=== PATIENT | female | born 1975 | race American Indian/Alaskan Native ===

== ENCOUNTER 2017-05-18 19:37 | Emergency (ER) | payer OTHER ==
[2017-05-18] MEDS ORDERED: TYLENOL PO ONE (20:28)
[2017-05-18] MEDS ORDERED: MOTRIN PO ONE (20:28)
--- NOTE | 2017-05-18 20:28 | Emergency Department Report ---
ED Lower Extremity HPI - General Chief Complaint: Extremity Injury, Lower Stated Complaint: RIGHT ANKLE PAIN Time Seen by Provider: 05/18/17 20:17 Source: patient Mode of arrival: Ambulatory Limitations: No Limitations - History of Present Illness Initial Comments: This is a 42-year-old female who was previously unknown to this provider, she reports that she is not and denies chronic medical conditions. Patient presents to the ER with left nontraumatic ankle swelling, and dorsal/ lateral foot swelling since Saturday. Patient reports she was on a treadmill, and her symptoms started after being on the treadmill. Denies other complaints and injuries. Has some swelling which is mildly painful, does not radiate anywhere, no redness, pus, streaking or fevers. No tingling, numbness or weakness. MD Complaint: foot injury -: days(s) Injury: Ankle: Left, Foot: Left Type of Injury: other Place: other Severity: mild Improves With: rest Worsens With: movement, palpation Context: other Associated Symptoms: swelling, ambulatory. denies: snap/pop sensation, numbness , tingling, unable to bear weight - Related Data Previous Rx's Medication Instructions Recorded Last Taken Type Acetaminophen [Tylenol Arthritis] 650 mg PO Q6HR PRN #30 tablet.er 05/18/17 Unknown Rx Ibuprofen [Motrin] 600 mg PO Q8H PRN #30 tablet 05/18/17 Unknown Rx Allergies Allergy/AdvReac Type Severity Reaction Status Date / Time No Known Allergies Allergy Unverified 05/18/17 19:46 ED Review of Systems ROS: Stated complaint: RIGHT ANKLE PAIN Other details as noted in HPI Comment: All other systems reviewed and negative ED Past Medical Hx - Past Medical History Previous Medical History?: No - Surgical History Past Surgical History?: No - Social History Smoking Status: Never Smoker Substance Use Type: None - Medications Home Medications: Home Medications Medication Instructions Recorded Confirmed Last Taken Type Acetaminophen [Tylenol Arthritis] 650 mg PO Q6HR PRN #30 tablet.er 05/18/17 Unknown Rx Ibuprofen [Motrin] 600 mg PO Q8H PRN #30 tablet 05/18/17 Unknown Rx ED Physical Exam - General Limitations: No Limitations General appearance: alert, in no apparent distress - Head Head exam: Present: atraumatic, normocephalic - Eye Eye exam: Present: normal appearance, EOMI - ENT ENT exam: Present: normal exam, normal external ear exam - Neck Neck exam: Present: normal inspection - Respiratory Respiratory exam: Absent: respiratory distress - Cardiovascular Cardiovascular Exam: Present: regular rate - GI/Abdominal GI/Abdominal exam: Present: soft - Extremities Exam Extremities exam: Present: full ROM, tenderness, normal capillary refill, other (the Sterling test is functional. There is superficial swelling noted on the dorsal/lateral aspect of the left foot. Dorsi and plantar flexion are intact in the bilateral lower extremities. Circumduction is intact in the bilateral lower extremities. The compartments are soft. 2+ pulses noted in the bilateral lower and upper extremities. There is no palpable cord. There is negative Homans sign.). Absent: pedal edema, joint swelling, calf tenderness - Back Exam Back exam: Present: normal inspection, full ROM. Absent: tenderness, CVA tenderness (R), paraspinal tenderness, vertebral tenderness - Neurological Exam Neurological exam: Present: alert, oriented X3, CN II-XII intact, normal gait ( patient walks with a slight limp but is able to weight bear), other ( Extraocular movements intact. Tongue midline. No facial droop. Facial sensation intact to light touch in the V1, V2, V3 distribution bilaterally. 5 and 5 strength in 4 extremities.. Sensation is intact to light touch in 4 extremities.). Absent: motor sensory deficit - Psychiatric Psychiatric exam: Present: normal affect, normal mood - Skin Skin exam: Present: warm, dry, intact, normal color. Absent: rash, cyanosis, diaphoretic, erythema, urticaria, vesicles, petechiae, pallor, abrasion, ecchymosis ED Course Vital Signs 05/18/17 19:43 Temperature 98.3 F Pulse Rate 74 Respiratory 16 Rate Blood Pressure 128/90 [Right] O2 Sat by Pulse 100 Oximetry ED Lower Extremity MDM - Lab Data Vital Signs 05/18/17 19:43 Temperature 98.3 F Pulse Rate 74 Respiratory 16 Rate Blood Pressure 128/90 [Right] O2 Sat by Pulse 100 Oximetry - Radiology Data Radiology results: image reviewed interpreted by me: x-ray of the left ankle, interpreted by me: Demonstrates no fracture or dislocation, soft tissue swelling is noted, defect is noted in the posterior aspect of the leg, suspicious for tendon rupture. - Medical Decision Making Differential diagnosis, including but not limited to: Sprain, strain, fracture, dislocation, tendon rupture Assessment and plan: 42-year-old female with left lateral foot swelling, not consistent with cellulitis, infection, DVT, has a functional Sterling test, compartments are soft, appropriate pulses, most likely has a partial to complete tendon rupture. Patient will be placed in an Aircast, given crutches, made nonweightbearing, patient should follow-up with outpatient orthopedics. Critical care attestation.: If time is entered above; I have spent that time in minutes in the direct care of this critically ill patient, excluding procedure time. ED Disposition Clinical Impression: Left leg pain Disposition: DC- TO HOME OR SELFCARE Is pt being admited?: No Does the pt Need Aspirin: No Condition: Stable Instructions: Tendinitis (ED) Additional Instructions: Rest, and avoid heavy lifting. Avoid strenuous physical activities. Take pain medication as directed. Remain nonweightbearing. Follow up with an orthopedist within the next 5-7 days. Return to the ER right away with new pain , worsened pain, migration of pain, weakness, numbness, unsteady gait, fevers, chills, lethargy, irritability. Referrals: LALO DAI MD [Staff Physician] - 3-5 Days
[2017-05-18 21:12] VITALS: BP 122/68
--- NOTE | 2017-05-18 21:56 | XRay Report ---
FINAL REPORT EXAM: XR ANKLE 3+V LT HISTORY: left ankle pain TECHNIQUE: Three views left ankle PRIORS: None. FINDINGS: No fracture is identified. No dislocation seen. Ankle mortise is intact no evidence of joint space widening. No erosive or degenerative changes are identified. No evidence of joint effusion. IMPRESSION: Negative ankle series
== END 2017-05-18 21:13 | disposition home or self-care (01) ==
LOC: ED 19:37
DX: M25.571 Pain in right ankle and joints of right foot (principal)
CPT/HCPCS: 99283